=== PATIENT | female | born 1980 | race Caucasian/White ===

== ENCOUNTER 2016-05-22 20:01 | Inpatient (IN) | payer OTHER ==
[~2016-05-22] VITALS: Ht 172.7 cm; Wt 82.4 kg
[~2016-05-22 20:01] MED LIST: MOTRIN 600600 MG/TAB PO; PERCOCET 325 MG1 TA2 PO; PRENATAL1 TA1 PO; ZOLOFT50 MG PO
[2016-05-22] MEDS ORDERED: WELLBUTRIN XL150 MG PO (20:04)
[2016-05-22 21:12] LABS: BASO % 0.5 % (0.0-2.0); EOS # 0.2 (0.0-0.7); EOS % 2.8 % (0-4.0); GRAN # 3.2 (1.4-6.5); GRAN % 56.6 % (42.2-75.2); HEMOGLOBIN 12.2 g/dl (12.5-16.0); LYMPH # 1.5 (1.2-3.4); LYMPH % 26.5 % (20.0-51.0); MEAN CELL VOLUME 91 fl (80.0-100.0); MEAN CORPUSCULAR HEMOGLOBIN 31 pg (27.0-31.0); MEAN CORPUSCULAR HGB CONC 34 g/dl (33.0-37.0); MEAN PLATELET VOLUME 8.8 fl (7.4-10.4); MONO # 0.7 (0.1-0.6); MONO % 13.2 % (1.7-9.3); PLATELET COUNT 205 K/mm3 (130-400); RED BLOOD COUNT 3.97 M/mm3 (4.10-5.30); REDCELL DISTRIBUTION WIDTH-CV 11.9 % (11.5-14.5); WHITE BLOOD COUNT 5.6 K/mm3 (4.8-10.8)
[2016-05-22 21:13] LABS: HEMATOCRIT 36.3 % (37.0-47.0)
[2016-05-22 21:18] LABS: INR 1.1 (0.8-3.0)
[2016-05-22 21:20] LABS: PARTIAL THROMBOPLASTIN TIME 30.5 SECONDS (26.0-37.0)
[2016-05-22 21:24] LABS: ADJUSTED CALCIUM 9.5 mg/dL (8.4-10.2); ALBUMIN 4.3 gm/dL (3.5-5.0); BILIRUBIN,TOTAL 0.6 mg/dL (0.0-1.0); CALCIUM 9.7 mg/dL (8.4-10.2); CREATININE, serum 0.93 mg/dL (0.52-1.25); POTASSIUM 3.4 mmol/L (3.4-5.0); TOTAL PROTEIN 7.4 gm/dL (6.4-8.2)
[2016-05-22 23:10] VITALS: BP 108/59; PULSE 76; TEMP 98.5
[2016-05-23 02:41] VITALS: BP 93/48; PULSE 65; TEMP 98.7
[2016-05-23 07:33] LABS: MEAN CELL VOLUME 93 fl (80.0-100.0); MEAN CORPUSCULAR HGB CONC 33 g/dl (33.0-37.0); MEAN PLATELET VOLUME 9.5 fl (7.4-10.4); PLATELET COUNT 175 K/mm3 (130-400); RED BLOOD COUNT 3.62 M/mm3 (4.10-5.30); REDCELL DISTRIBUTION WIDTH-CV 11.9 % (11.5-14.5); WHITE BLOOD COUNT 3.6 K/mm3 (4.8-10.8)
[2016-05-23 07:37] LABS: HEMATOCRIT 33.8 % (37.0-47.0); HEMOGLOBIN 11.1 g/dl (12.5-16.0); MEAN CORPUSCULAR HEMOGLOBIN 31 pg (27.0-31.0)
[2016-05-23 07:38] LABS: ADD PATHOLOGY DIFF REVIEW NO
[2016-05-23 08:17] VITALS: BP 108/61; PULSE 58; TEMP 98.3
[2016-05-23 09:59] LABS: BAND 7 % (0-10); BASOPHIL 2 % (0-2); EOSINOPHIL 3 % (0-4); NEUTROPHILS 35 % (42.0-75.2); PLATELET ESTIMATE NORMAL (NORMAL); TOTAL CELLS COUNTED 100
[2016-05-23 11:13] LABS: CALCIUM 9.1 mg/dL (8.4-10.2); CREATININE, serum 0.84 mg/dL (0.52-1.25); POTASSIUM 3.8 mmol/L (3.4-5.0)
[2016-05-23 12:07] VITALS: BP 117/71; PULSE 63; TEMP 98.1
[2016-05-23 17:45] VITALS: BP 105/68; PULSE 58; TEMP 98.4
[2016-05-23 19:04] LABS: PROLACTIN 16.1 ng/mL (3.0-18.6)
[2016-05-23 19:50] VITALS: BP 115/67; PULSE 68; TEMP 98.1
[2016-05-24 00:47] VITALS: BP 100/64; PULSE 72; TEMP 97.9
[2016-05-24 04:02] VITALS: BP 101/56; PULSE 64; TEMP 97.5
[2016-05-24 08:58] VITALS: BP 113/67; PULSE 76; TEMP 98.6
[2016-05-24 12:15] VITALS: BP 102/68; PULSE 64; TEMP 98.1
[2016-05-24 15:59] VITALS: BP 98/54; PULSE 68; TEMP 97.9
[2016-05-24 20:39] VITALS: BP 101/65; PULSE 66; TEMP 98.3
[2016-05-25 00:17] VITALS: BP 96/57; PULSE 64; TEMP 98.3
[2016-05-25 04:16] VITALS: BP 99/61; PULSE 71; TEMP 97.8
[2016-05-25 07:59] VITALS: BP 108/54; PULSE 63; TEMP 97.9
[2016-05-25 11:38] VITALS: BP 92/50; PULSE 68; TEMP 98.1
[2016-05-25] MEDS ORDERED: PHENYTEK200 MG PO (13:03)
[2016-05-25] MEDS ORDERED: KEPPRA750 MG PO (13:05)
[2016-07-21] MEDS ORDERED: DILANTIN 100MG100 MG PO ×3 (09:03→09:04)
[2016-07-23] MEDS ORDERED: ZOFRAN 4MG T4 MG/TAB PO (08:34)
== END 2016-05-25 14:26 | disposition home or self-care (01) | DRG 101 ==
LOC: COL.ER 20:01 → MEDICAL 22:14
PROVIDERS: Nurse Practitioner Family; Physician Assistant
DX: G40.109 Localization-related (focal) (partial) symptomatic epilepsy and epileptic syndromes with simple partial seizures, not intractable, without status epilepticus (principal); F41.8 Other specified anxiety disorders; Z87.891 Personal history of nicotine dependence
CPT/HCPCS: 99223-AI; 99232-AI; 99239; A9585; G0378; G8978-GP; G8979-GP; G8999-GN; G9186-GN; J1200; J1953; J2060; J2550; J7030; Q2009

== ENCOUNTER → 2016-06-12 | Outpatient (CLI) | payer OTHER ==
[~2016-06-12] MED LIST changes: +ATIVAN 1MG T1 MG/TAB PO; +DILANTIN 100MG100 MG PO; +KEPPRA750 MG PO; +OMNICEF 300MG300 MG PO; +PHENYTEK200 MG PO; +WELLBUTRIN XL150 MG PO; +ZOFRAN 4MG T4 MG/TAB PO
== END ==
LOC: COL.CARD 12:39
DX: G40.802 Other epilepsy, not intractable, without status epilepticus (principal)

== ENCOUNTER 2016-07-04 13:53 | Emergency (ER) | payer OTHER ==
[~2016-07-04] VITALS: Ht 172.7 cm; Wt 77.3 kg
[~2016-07-04 13:53] MED LIST changes: -ATIVAN 1MG T1 MG/TAB PO; -DILANTIN 100MG100 MG PO; -OMNICEF 300MG300 MG PO; -ZOFRAN 4MG T4 MG/TAB PO
[2016-07-04 13:57] VITALS: BP 127/82; TEMP 98.4
[2016-07-04 14:53] LABS: BASO % 1.1 % (0.0-2.0); EOS # 0.2 (0.0-0.7); EOS % 4.2 % (0-4.0); GRAN % 55.5 % (42.2-75.2); HEMATOCRIT 38.1 % (37.0-47.0); HEMOGLOBIN 12.7 g/dl (12.5-16.0); LYMPH % 28.2 % (20.0-51.0); MEAN CELL VOLUME 92 fl (80.0-100.0); MEAN CORPUSCULAR HEMOGLOBIN 31 pg (27.0-31.0); MEAN CORPUSCULAR HGB CONC 33 g/dl (33.0-37.0); MEAN PLATELET VOLUME 9.2 fl (7.4-10.4); MONO # 0.4 (0.1-0.6); MONO % 10.7 % (1.7-9.3); PLATELET COUNT 180 K/mm3 (130-400); RED BLOOD COUNT 4.15 M/mm3 (4.10-5.30); REDCELL DISTRIBUTION WIDTH-CV 12.2 % (11.5-14.5); WHITE BLOOD COUNT 3.5 K/mm3 (4.8-10.8)
[2016-07-04 15:00] LABS: ADJUSTED CALCIUM 9.3 mg/dL (8.4-10.2); ALANINE AMINOTRANSFERASE 43 U/L (9-52); ALBUMIN 4.6 gm/dL (3.5-5.0); ALKALINE PHOSPHATASE 98 U/L (50-136); ANION GAP 11 mmol/L (7-16); BILIRUBIN,TOTAL 0.6 mg/dL (0.0-1.0); BLOOD UREA NITROGEN 20 mg/dL (7-17); CALCIUM 9.8 mg/dL (8.4-10.2); CARBON DIOXIDE 28 mmol/L (22-30); CHLORIDE 99 mmol/L (98-107); CREATININE, serum 0.78 mg/dL (0.52-1.25); GLUCOSE 84 mg/dL (74-106); POTASSIUM 4.2 mmol/L (3.4-5.0); SODIUM 138 mmol/L (137-145); TOTAL PROTEIN 7.5 gm/dL (6.4-8.2)
[2016-07-04 15:02] LABS: C-REACTIVE PROTEIN < 0.5 mg/dL (0.0-0.9)
[2016-07-04 15:13] LABS: PROLACTIN 14.3 ng/mL (3.0-18.6)
[2016-07-04] MEDS ORDERED: ATIVAN 1MG T1 MG/TAB PO (16:26)
[2016-07-04] MEDS ORDERED: DILANTIN 100MG100 MG PO (16:26)
[2016-07-04 17:11] VITALS: PULSE 80
[2016-07-04] MEDS ORDERED: OMNICEF 300MG300 MG PO (18:11)
[2016-07-21] MEDS ORDERED: DILANTIN 100MG100 MG PO ×3 (09:03→09:04)
[2016-07-23] MEDS ORDERED: ZOFRAN 4MG T4 MG/TAB PO (08:34)
== END 2016-07-04 17:00 | disposition home or self-care (01) ==
LOC: COL.ER 13:53
PROVIDERS: Emergency Medicine
DX: R29.818 Other symptoms and signs involving the nervous system (principal); J01.00 Acute maxillary sinusitis, unspecified
CPT/HCPCS: J2060; J7030

== ENCOUNTER → 2016-07-11 | Outpatient (CLI) | payer OTHER ==
[~2016-07-11] MED LIST changes: +ATIVAN 1MG T1 MG/TAB PO; +DILANTIN 100MG100 MG PO; +OMNICEF 300MG300 MG PO; +ZOFRAN 4MG T4 MG/TAB PO
== END ==
LOC: COL.RAD 14:51
DX: E04.1 Nontoxic single thyroid nodule (principal); R94.6 Abnormal results of thyroid function studies

== ENCOUNTER → 2016-07-23 | Outpatient (CLI) | payer OTHER ==
[~2016-07-23] VITALS: Ht 172.7 cm; Wt 78.6 kg
[2016-07-23 08:37] VITALS: BP 92/60; PULSE 66
[2016-07-23 09:45] VITALS: BP 112/67; PULSE 76
[2016-07-23 10:00] VITALS: BP 105/69; PULSE 73
== END ==
LOC: COL.RAD 08:15
DX: E04.1 Nontoxic single thyroid nodule (principal)
CPT/HCPCS: 13756

== ENCOUNTER → 2016-08-11 | Outpatient (CLI) | payer OTHER | LOC: COL.RAD 07:24 | DX: M51.27 Other intervertebral disc displacement, lumbosacral region (principal); E04.1 Nontoxic single thyroid nodule | CPT/HCPCS: A9585 ==

== ENCOUNTER → 2016-09-01 | Outpatient (CLI) | payer OTHER | LOC: BHSO 09:57 | DX: F41.1 Generalized anxiety disorder (principal) ==

== ENCOUNTER → 2016-09-16 | Outpatient (CLI) | payer OTHER | LOC: BHSO 10:03 | DX: F41.1 Generalized anxiety disorder (principal) ==

== ENCOUNTER → 2016-10-10 | Outpatient (CLI) | payer OTHER | LOC: BHSO 11:02 | DX: F31.81 Bipolar II disorder (principal) | CPT/HCPCS: 90791-AI ==

== ENCOUNTER → 2016-10-20 | Outpatient (CLI) | payer OTHER | LOC: BHSO 13:50 | DX: F41.1 Generalized anxiety disorder (principal) ==

== ENCOUNTER → 2016-11-06 | Outpatient (CLI) | payer OTHER | LOC: BHSO 09:02 | DX: F41.1 Generalized anxiety disorder (principal) ==

== ENCOUNTER → 2016-11-12 | Outpatient (CLI) | payer OTHER | LOC: BHSO 09:41 | DX: F31.81 Bipolar II disorder (principal) ==

== ENCOUNTER → 2016-11-24 | Outpatient (REF) | LOC: WSOH 17:00 | DX: Z02.89 Encounter for other administrative examinations (principal) ==

== ENCOUNTER → 2016-12-04 | Outpatient (CLI) | payer OTHER | LOC: BHSO 08:56 | DX: F41.1 Generalized anxiety disorder (principal) ==

== ENCOUNTER → 2017-01-01 | Outpatient (CLI) | payer OTHER | LOC: COL.RAD 11:15 | DX: E04.1 Nontoxic single thyroid nodule (principal) ==

== ENCOUNTER → 2017-01-08 | Outpatient (CLI) | payer OTHER | LOC: BHSO 09:02 | DX: F41.1 Generalized anxiety disorder (principal) ==

== ENCOUNTER → 2017-01-13 | Outpatient (CLI) | payer OTHER | LOC: BHSO 14:56 | DX: F31.81 Bipolar II disorder (principal) ==

== ENCOUNTER → 2017-01-20 | Outpatient (CLI) | payer OTHER | LOC: BHSO 15:06 | DX: F41.1 Generalized anxiety disorder (principal) ==

== ENCOUNTER → 2017-04-07 | Outpatient (CLI) | payer BC | LOC: BHSO 14:45 | DX: F31.81 Bipolar II disorder (principal) | CPT/HCPCS: G0463 ==

== ENCOUNTER → 2017-07-30 | Outpatient (CLI) | payer BC | LOC: BHSO 11:38 | DX: F31.81 Bipolar II disorder (principal) | CPT/HCPCS: G0463 ==

== ENCOUNTER 2017-09-21 09:07 | Emergency (ER) | payer BC ==
[~2017-09-21] VITALS: Ht 172.7 cm; Wt 80.7 kg
[2017-09-21 09:36] LABS: COLLECTION METHOD CLEAN CATCH
[2017-09-21 09:43] LABS: BASO # 0.1 (0.0-0.2); EOS # 0.2 (0.0-0.7); EOS % 3.5 % (0-4.0); GRAN # 2.8 (1.4-6.5); GRAN % 58.7 % (42.2-75.2); HEMOGLOBIN 13.8 g/dl (12.5-16.0); LYMPH # 1.3 (1.2-3.4); LYMPH % 27.7 % (20.0-51.0); MEAN CELL VOLUME 91 fl (80.0-100.0); MEAN CORPUSCULAR HEMOGLOBIN 31 pg (27.0-31.0); MEAN CORPUSCULAR HGB CONC 34 g/dl (33.0-37.0); MEAN PLATELET VOLUME 9.1 fl (7.4-10.4); MONO # 0.4 (0.1-0.6); MONO % 8.7 % (1.7-9.3); PLATELET COUNT 203 K/mm3 (130-400); RED BLOOD COUNT 4.49 M/mm3 (4.10-5.30); REDCELL DISTRIBUTION WIDTH-CV 12.3 % (11.5-14.5)
[2017-09-21 09:49] LABS: MUCOUS Present /lpf; PH 7 (5-8); SQUAMOUS EPITHELIAL 0-2 /hpf; URINE APPEARANCE Clear; URINE BACTERIA None Seen /hpf; URINE BILIRUBIN Negative (NEGATIVE); URINE BLOOD Negative (NEGATIVE); URINE COLOR Yellow; URINE GLUCOSE Negative (NEGATIVE); URINE KETONE Negative (NEGATIVE); URINE LEUKOCYTE ESTERASE Negative (NEGATIVE); URINE NITRATE Negative (NEGATIVE); URINE PROTEIN(semi-quant) Negative (NEGATIVE); URINE UROBILINOGEN Negative (NEGATIVE)
[2017-09-21 09:56] LABS: ALANINE AMINOTRANSFERASE 27 U/L (9-52); ALBUMIN 4.4 gm/dL (3.5-5.0); ALKALINE PHOSPHATASE 73 U/L (50-136); ANION GAP 12 mmol/L (7-16); AST,SGOT 23 U/L (15-37); BILIRUBIN,TOTAL 1.1 mg/dL (0.0-1.0); BLOOD UREA NITROGEN 14 mg/dL (7-17); C-REACTIVE PROTEIN < 0.5 mg/dL (0.0-0.9); CALCIUM 9.7 mg/dL (8.4-10.2); CARBON DIOXIDE 26 mmol/L (22-30); CHLORIDE 102 mmol/L (98-107); GLUCOSE 93 mg/dL (74-106); LIPASE 48 U/L (23-300); SODIUM 141 mmol/L (137-145)
[2017-09-21] MEDS ORDERED: NORCO 325 MG-51 TAB PO (12:44)
[2017-09-21] MEDS ORDERED: ZOFRAN ODT4 MG PO (12:44)
[2017-09-21 13:21] VITALS: BP 113/67; PULSE 71; TEMP 98
== END 2017-09-21 13:16 | disposition home or self-care (01) ==
LOC: COL.ER 09:07
PROVIDERS: Emergency Medicine
DX: R10.11 Right upper quadrant pain (principal); R10.31 Right lower quadrant pain; R10.32 Left lower quadrant pain; F32.9 Major depressive disorder, single episode, unspecified; F41.9 Anxiety disorder, unspecified; Z87.442 Personal history of urinary calculi
CPT/HCPCS: J1885; J2405; J7030; Q9967

== ENCOUNTER → 2019-01-11 | Outpatient (CLI) | payer BC ==
[~2019-01-11] MED LIST changes: +NORCO 325 MG-51 TAB PO; +ZOFRAN ODT4 MG PO
== END ==
LOC: BHSO 14:34
DX: F31.81 Bipolar II disorder (principal)
CPT/HCPCS: G0463

== ENCOUNTER → 2019-02-15 | Outpatient (CLI) | payer BC | LOC: BHSO 14:48 | DX: F41.1 Generalized anxiety disorder (principal) | CPT/HCPCS: G0463 ==

== ENCOUNTER → 2019-03-28 | Outpatient (CLI) | payer BC | LOC: BHSO 09:21 | DX: F33.42 Major depressive disorder, recurrent, in full remission (principal) | CPT/HCPCS: G0463 ==